=== PATIENT | female | born 1990 | race Caucasian/White ===

== ENCOUNTER 2019-03-11 17:33 | Emergency (ER) | payer OTHER ==
[2019-03-11 17:56] VITALS: BP 130/56
--- NOTE | 2019-03-11 18:12 | UC ---
Throat Pain/Nasal Jose HPI - HPI Summary HPI Summary: Patient is a 28yo female presenting with sore throat and subjective fevers x1 week. 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 Notes nasal congestion. Denies ear pain and cough. Denies SOB and wheezing. Denies chills. Has taken dayquil with some relief. - History of Current Complaint Stated Complaint: POSS STREP Hx Last Menstrual Period: 02/14/19 Onset/Duration: Gradual Onset, Lasting Days Severity: Moderate Pain Intensity: 8 Pain Scale Used: 0-10 Numeric - Allergies/Home Medications Allergies/Adverse Reactions: Allergies Allergy/AdvReac Type Severity Reaction Status Date / Time No Known Allergies Allergy Verified 03/11/19 17:56 Home Medications: Home Medications Venlafaxine TAB (NF) [Effexor TAB (NF)] 1 tab PO DAILY 03/11/19 [History Confirmed 03/11/19] hydrOXYzine HCL TAB* [Atarax 25 MG TAB*] 1 tab PO DAILY PRN 03/11/19 [History Confirmed 03/11/19] PMH/Surg Hx/FS Hx/Imm Hx Previously Healthy: Yes - Surgical History Surgical History: Yes Surgery Procedure, Year, and Place: wisdom teeth - Family History Known Family History: Positive: Non-Contributory - Social History Alcohol Use: Occasionally Substance Use Type: None Smoking Status (MU): Never Smoked Tobacco Review of Systems All Other Systems Reviewed And Are Negative: Yes Constitutional: Positive: Fever. Negative: Chills, Fatigue Skin: Positive: Negative Eyes: Negative: Blurred Vision, Drainage, Eye Redness, Photophobia ENT: Positive: Sore Throat, Nasal Discharge, Sinus Congestion. Negative: Ear Ache, Sinus Pain/Tenderness Respiratory: Positive: Negative. Negative: Shortness Of Breath, Cough Cardiovascular: Positive: Negative. Negative: Palpitations, Chest Pain Gastrointestinal: Positive: Negative. Negative: Abdominal Pain, Vomiting, Diarrhea, Nausea Musculoskeletal: Positive: Myalgia. Negative: Arthralgia, Edema Neurological: Positive: Negative Physical Exam Triage Information Reviewed: Yes Appearance: Well-Appearing, No Pain Distress, Well-Nourished Vital Signs: Initial Vital Signs Temp 99.4 F 03/11/19 17:49 Pulse 92 03/11/19 17:49 Resp 17 03/11/19 17:49 BP 130/56 03/11/19 17:49 Pulse Ox 99 03/11/19 17:49 Lab Results 03/11/19 Range/Units 17:59 Group A Strep Rapid Negative (Negative) Vital Signs Reviewed: Yes Eyes: Positive: Conjunctiva Clear ENT: Positive: Hearing grossly normal, Pharyngeal erythema, Nasal congestion, Nasal drainage, TMs normal, Tonsillar swelling, Tonsillar exudate, Uvula midline. Negative: TM bulging, TM dull, TM red, Trismus, Muffled voice, Hoarse voice, Sinus tenderness Neck exam: Normal Neck: Positive: Supple, Nontender, Enlarged Nodes @ - left posterior cervical node Respiratory Exam: Normal Respiratory: Positive: Lungs clear, Normal breath sounds, No respiratory distress, No accessory muscle use. Negative: Crackles, Rhonchi, Stridor, Wheezing Cardiovascular Exam: Normal Cardiovascular: Positive: RRR. Negative: Tachycardia Neurological: Positive: Alert Psychological: Positive: Age Appropriate Behavior Skin Exam: Normal Throat Pain/Nasal Course/Dx - Course Course Of Treatment: Discussed negative rapid strep test with patient. When patient asked if it could be mono, I informed her that it is possible but there is a high number of false negatives within the first week of symptom onset and a positive result will not change the treatment today. Patient then declined monospot when offered. Instructed her to get plenty of rest and fluids and to follow up with PCP if symptoms persist. Patient voiced understanding and agreed to treatment plan. Discussed patient with Dr. Goldsmith. - Differential Dx/Diagnosis Provider Diagnosis: Exudative pharyngitis Discharge ED - Sign-Out/Discharge Documenting (check all that apply): Patient Departure All imaging exams completed and their final reports reviewed: No Studies - Discharge Plan Condition: Stable Disposition: HOME Patient Education Materials: Pharyngitis (ED) Referrals: Dariana Oden MD [Primary Care Provider] - If Needed Additional Instructions: As discussed, your rapid strep test was negative today. You may continue to take over the counter cough and cold medications for your cold symptoms. You may use nasal saline spray, throat lozenges, and throat sprays as directed for symptomatic relief. You may take ibuprofen as directed for pain relief. Get plenty of rest and fluids. Return or follow up with your primary care doctor if your symptoms worsen or do not resolve within 7 days. - Billing Disposition and Condition Condition: STABLE Disposition: Home
== END 2019-03-11 18:30 | disposition home or self-care (01) ==
LOC: UCEAST 17:33
DX: J02.9 Acute pharyngitis, unspecified (principal)
CPT/HCPCS: 87651; 99201; G0463